=== PATIENT | male | born 1970 | race Caucasian/White ===

== ENCOUNTER 2017-08-22 20:15 | Emergency (ER) | payer OTHER ==
[2017-08-23 02:05] LABS: ADD MAN DIFF? NO
[2017-08-23] MEDS: LIDOCAINE/MYLANTA 40 ML BTL PO (02:05)
[2017-08-23] MEDS: ASPIRIN 325 MG TAB PO (02:05)
[2017-08-23 02:08] LABS: BASOPHIL # 0.1 10^3/ul (0.0-0.1); BASOPHILS % 1.1 % (0.0-2.0); EOSINOPHILS # 0.3 10^3/ul (0.0-0.5); EOSINOPHILS % 4.6 % (0.0-7.0); HEMATOCRIT 44.9 % (42.0-52.0); HEMOGLOBIN 15.6 g/dl (14.0-18.0); LYMPHOCYTES # 2.5 10^3/ul (0.8-2.9); LYMPHOCYTES % 34.5 % (15.0-51.0); MEAN CORPUSCULAR HEMOGLOBIN 30.1 pg (29.0-33.0); MEAN CORPUSCULAR HGB CONC 34.7 g/dl (32.0-37.0); MEAN CORPUSCULAR VOLUME 86.5 fl (82.0-101.0); MEAN PLATELET VOLUME 9.2 fl (7.4-10.4); MONOCYTE # 0.5 10^3/ul (0.3-0.9); MONOCYTES % 6.3 % (0.0-11.0); NEUTROPHIL # 3.9 10^3/ul (1.6-7.5); NEUTROPHILS % 53.4 % (39.0-77.0); PLATELET COUNT 189 10^3/UL (140-415); RED BLOOD COUNT 5.19 10^6/ul (4.70-6.10)
[2017-08-23 02:08] LABS: WHITE BLOOD COUNT 7.3 10^3/ul (4.8-10.8)
[2017-08-23 02:46] LABS: ANION GAP 15 (8-16); BLOOD UREA NITROGEN 19 mg/dl (7-20); CALCIUM 9.3 mg/dl (8.4-10.2); CARBON DIOXIDE 24 mmol/L (21-31); CHLORIDE 109 mmol/L (97-110); CREATININE 0.88 mg/dl (0.61-1.24); GLUCOSE 110 mg/dl (70-220); POTASSIUM 4.2 mmol/L (3.5-5.1); SODIUM 144 mmol/L (135-144)
[2017-08-23 02:58] LABS: B-TYPE NATRIURETIC PEPTIDE < 11 PG/ML (0-125); TROPONIN-I < 0.012 ng/ml (0.000-0.120)
== END 2017-08-23 03:37 | disposition home or self-care (01) ==
LOC: E/R 20:15
DX: R07.9 Chest pain, unspecified (principal); I10 Essential (primary) hypertension
CPT/HCPCS: 36415; 71045; 80048; 83880; 84484; 85025; 93005; 99285-25